=== PATIENT | male | born 1995 | race Two or more races ===

== ENCOUNTER 2016-11-03 20:01 | Emergency (ER) | payer SELFPAY ==
[~2016-11-03] VITALS: Ht 175.3 cm; Wt 100.0 kg
[2016-11-03 20:45] VITALS: BP 113/59
== END 2016-11-03 23:03 | disposition home or self-care (01) ==
LOC: ER 20:03
DX: S00.81XA Abrasion of other part of head, initial encounter (principal); M25.511 Pain in right shoulder; M79.621 Pain in right upper arm; V43.52XA Car driver injured in collision with other type car in traffic accident, initial encounter; Y92.488 Other paved roadways as the place of occurrence of the external cause
CPT/HCPCS: 73030; 73060; 99284